=== PATIENT | male | born 1995 | race Caucasian/White ===

== ENCOUNTER 2016-09-09 14:16 | Emergency (ER) | payer OTHER ==
[2016-09-09 14:30] VITALS: TEMP 98; BMI 25.1
[2016-09-09] MEDS ORDERED: SODIUM CHLORIDE 1,000 ML IV STA (16:40)
[2016-09-09] MEDS ORDERED: ALBUTEROL SO4 0.083% IH SOL 2.5 MG/3 ML VIAL.NEB. NEB ONE ×2 (16:42→17:41)
--- NOTE | 2016-09-09 16:45 | PDOC ---
History of Present Illness - General History Source: Patient Exam Limitations: No Limitations - History of Present Illness Initial Comments: 09/09/16 16:59 The patient is a 21 year old male, with a significant past medical history of asthma, who presents to the emergency department complaining of a headache, dizziness, and palpitations since last night. The patient reports he was at [employer], when he began to feel his headache. He reports buying two pills for his headache, from a person he had seen at the club in the past. He reports taking the pills at approximately 23:00. Since taking the pills he reports associated palpitations, diaphoresis, and tiredness. The patient reports difficulty sleeping since taking the pills. Patient states symptoms lasted several hours. The patient denies any associated chest pain or shortness of breath. Today, he reports having an asthma attack, and using albuterol with relief of symptoms. The patient reports his symptoms have worn off, but he presents to the ED due to concerns about what pill he may have taken. The patient denies any fever, chills, or dizziness. The patient denies any nausea, vomiting, diarrhea, constipation, or changes in urination patterns. Allergies: NKDA, Bee-venom Past Surgical History: None reported. Social History: Current everyday smoker(8-10 cigarettes per day). Social ETOH use. Denies drug use. PCP: Dr. Valdez <J Luis Miller - Last Filed: 09/09/16 17:00> - General History Source: Patient, Parent(s) Exam Limitations: No Limitations <Garrett Wolf - Last Filed: 09/09/16 18:31> - General Chief Complaint: Lightheaded Stated Complaint: DIZZINESS Time Seen by Provider: 09/09/16 16:31 Past History <J Luis Miller - Last Filed: 09/09/16 17:00> - Past Medical History Asthma: Yes - Psycho/Social/Smoking Cessation Hx Anxiety: No Suicidal Ideation: No Smoking History: Current every day smoker Have you smoked in the past 12 months: No Number of Cigarettes Smoked Daily: 10 Information on smoking cessation initiated: No Hx Alcohol Use: No Drug/Substance Use Hx: No Substance Use Type: None <Garrett Wolf - Last Filed: 09/09/16 18:31> - Past Medical History Allergies/Adverse Reactions: Allergies Allergy/AdvReac Type Severity Reaction Status Date / Time venom-honey bee Allergy Verified 09/09/16 14:30 [bee venom (honey bee)] Home Medications: Ambulatory Orders Albuterol 2.5/Ipratropium 0.5 [Duoneb -] 1 neb IH Q4H #1 vial.neb. 01/14/16 Albuterol Sulfate Inhaler - [Ventolin HFA Inhaler -] 1 - 2 inh PO QID PRN #1 inhaler 04/13/16 Cephalexin Monohydrate [Keflex -] 500 mg PO BID #20 capsule 05/23/16 Sulfamethoxazole/Trimethoprim [Bactrim Ds -] 1 tab PO BID #14 tablet 05/23/16 Review of Systems - Review of Systems Able to Perform ROS?: Yes Comments:: 09/09/16 16:48 GENERAL/CONSTITUTIONAL: Yes:+Tired. No fever or chills. No weakness. HEAD, EYES, EARS, NOSE AND THROAT: No change in vision. No ear pain or discharge. No sore throat. CARDIOVASCULAR: Yes: +palpitations, +diaphoresis. No chest pain or shortness of breath. RESPIRATORY: Yes: +cough, +wheezing. No hemoptysis. GASTROINTESTINAL: No nausea, vomiting, diarrhea or constipation. GENITOURINARY: No dysuria, frequency, or change in urination. MUSCULOSKELETAL: No joint or muscle swelling or pain. No neck or back pain. SKIN: No rash NEUROLOGIC: Yes: +headache, +dizziness. No vertigo, loss of consciousness, or change in strength/sensation. ENDOCRINE: No increased thirst. No abnormal weight change. HEMATOLOGIC/LYMPHATIC: No anemia, easy bleeding, or history of blood clots. ALLERGIC/IMMUNOLOGIC: No hives or skin allergy. <J Luis Miller - Last Filed: 09/09/16 17:00> *Physical Exam - Vital Signs Last Vital Signs Temp Pulse Resp BP Pulse Ox 98 F 80 18 156/85 98 09/09/16 14:27 09/09/16 14:27 09/09/16 14:27 09/09/16 14:27 09/09/16 14:27 - Physical Exam Comments: 09/09/16 16:48 GENERAL: Awake, alert, and fully oriented, in no acute distress HEAD: No signs of trauma EYES: PERRLA, EOMI, sclera anicteric, conjunctiva clear ENT: Auricles normal inspection, hearing grossly normal, nares patent, oropharynx clear without exudates. Moist mucosa NECK: Normal ROM, supple, no lymphadenopathy, JVD, or masses LUNGS: Breath sounds equal, clear to auscultation bilaterally. No wheezes, and no crackles HEART: Regular rate and rhythm, normal S1 and S2, no murmurs, rubs or gallops ABDOMEN: Soft, nontender, normoactive bowel sounds. No guarding, no rebound. No masses EXTREMITIES: Normal range of motion, no edema. No clubbing or cyanosis. No cords, erythema, or tenderness NEUROLOGICAL: Cranial nerves II through XII grossly intact. Normal speech, normal gait SKIN: Warm, Dry, normal turgor, no rashes or lesions noted. <J Luis Miller - Last Filed: 09/09/16 17:00> - Vital Signs Last Vital Signs Temp Pulse Resp BP Pulse Ox 98 F 80 18 156/85 98 09/09/16 14:27 09/09/16 14:27 09/09/16 14:27 09/09/16 14:27 09/09/16 14:27 <Garrett Wolf - Last Filed: 09/09/16 18:31> Heart Score/ECG Review #1 ECG reviewed & interpreted by me at: 17:30 09/09/16 17:50 NSR 60, no std/raúl, normal intervals, QTC 388 msec. no twi. <Garrett Wolf - Last Filed: 09/09/16 18:31> ED Treatment Course - LABORATORY CBC & Chemistry Diagram: 09/09/16 17:05 09/09/16 17:05 <Garrett Wolf - Last Filed: 09/09/16 18:31> Medical Decision Making - Medical Decision Making 09/09/16 16:41 A portion of this note was written by my scribe, under my supervision. Vital Signs Temp Pulse Resp BP Pulse Ox 98 F 80 18 156/85 98 09/09/16 14:27 09/09/16 14:27 09/09/16 14:27 09/09/16 14:27 09/09/16 14:27 21 year old male with past medical history of asthma presents with palpitations and dizziness. The patient was out yesterday night going to a club in [place]. He ended up took two pills from a "dealer" at approximately 11 pm yesterday night. Since then, has developed dizziness, palpitations, feeling warm, and couldn't sleep. Reported that the symptoms lasted for several hours and pt was having difficulty sleeping. Denies chest pain, SOB. Stated that he started to wheeze and he has been using his albuterol. Patient was concerned for what he had taken and came into ED. Reports feeling better now. At this point, patient is not symptomatic. It is possible that this may have been ecstacy. However, will need to investigate with ECG, drug screen, labs, UA. Though lungs are clear, will give one dose of albuterol. Observe and reassess. 09/09/16 18:31 CBC, BMP 09/09/16 17:05 09/09/16 17:05 CMP Sodium 143 mmol/L (136-145) 09/09/16 17:05 Potassium 4.1 mmol/L (3.5-5.1) 09/09/16 17:05 Chloride 108 mmol/L (98-107) H 09/09/16 17:05 Carbon Dioxide 25 mmol/L (21-32) 09/09/16 17:05 Anion Gap 10 (8-16) 09/09/16 17:05 BUN 17 mg/dL (7-18) D 09/09/16 17:05 Creatinine 0.8 mg/dL (0.7-1.3) 09/09/16 17:05 Creat Clearance w eGFR > 60 (>60) 09/09/16 17:05 Random Glucose 94 mg/dL (74-106) 09/09/16 17:05 Calcium 9.0 mg/dL (8.5-10.1) 09/09/16 17:05 Total Bilirubin 0.3 mg/dL (0.2-1.0) D 09/09/16 17:05 AST 15 U/L (15-37) D 09/09/16 17:05 ALT 32 U/L (12-78) 09/09/16 17:05 Alkaline Phosphatase 74 U/L (45-117) 09/09/16 17:05 Creatine Kinase 132 IU/L (39-308) 09/09/16 17:05 Troponin I < 0.02 ng/ml (0.00-0.05) 09/09/16 17:05 Total Protein 6.8 g/dl (6.4-8.2) 09/09/16 17:05 Albumin 3.9 g/dl (3.4-5.0) 09/09/16 17:05 Urine Test Results Urine Color Yellow 09/09/16 17:20 Urine Appearance Slcloudy 09/09/16 17:20 Urine pH 7.0 (5.0-8.0) 09/09/16 17:20 Ur Specific [place] 1.026 (1.001-1.035) 09/09/16 17:20 Urine Protein Negative (NEGATIVE) 09/09/16 17:20 Urine Glucose (UA) Negative (NEGATIVE) 09/09/16 17:20 Urine Ketones Negative (NEGATIVE) 09/09/16 17:20 Urine Blood Negative (NEGATIVE) 09/09/16 17:20 Urine Nitrite Negative (NEGATIVE) 09/09/16 17:20 Urine Bilirubin Negative (NEGATIVE) 09/09/16 17:20 Ur Leukocyte Esterase Negative (NEGATIVE) 09/09/16 17:20 Urine tox positive for ecstasy and marijunana. ECG unremarkable. Pt and pt's family given results. Drug counselling and cessation advised. Patient is cleared for discharge. I discussed the physical exam findings, ancillary test results and final diagnoses with the patient. I answered all of the patient's questions. The patient was satisfied with the care received and felt comfortable with the discharge plan and treatment plan. The patient will call their primary care physician within 24 hours to arrange follow-up and will return to the Emergency Department with any new, persistant or worsening symptoms. <Garrett Wolf - Last Filed: 09/09/16 18:31> *DC/Admit/Observation/Transfer - Attestations Scribe Attestion: 09/09/16 16:49 Documentation prepared by J Luis Miller, acting as medical attendant for Garrett Wolf MD. <J Luis Miller - Last Filed: 09/09/16 17:00> - Discharge Dispostion Admit: No <Garrett Wolf - Last Filed: 09/09/16 18:31> Diagnosis at time of Disposition: Ecstasy use disorder, mild - Discharge Dispostion Disposition: HOME Condition at time of disposition: Stable - Referrals Referrals: Onel Valdez [Primary Care Provider] - - Patient Instructions Additional Instructions: Please be careful of what you take. Please follow up with your doctor. - Post Discharge Activity Work/School Note: Back to Work
[2016-09-09 17:25] LABS: BASOPHIL 0.6 % (0-2.0); EOSINOPHIL 1.8 % (0-4.5); MCH 29.6 pg (25.7-33.7); MCHC 34.3 g/dl (32.0-35.9); MEAN CELL VOLUME 86.4 fl (80-96); MEAN PLT VOLUME 9.3 fl (7.5-11.1); NEUTROPHILS 67.7 % (42.8-82.8); PLATELET COUNT 206 K/MM3 (134-434); RDW 14.1 % (11.9-15.9); WHITE BLOOD COUNT 10.2 K/mm3 (4.0-10.0)
[2016-09-09 17:31] LABS: URINE APPEARANCE SLCLOUDY; URINE BILIRUBIN NEGATIVE (NEGATIVE); URINE BLOOD NEGATIVE (NEGATIVE); URINE COLOR YELLOW; URINE GLUCOSE (UA) NEGATIVE (NEGATIVE); URINE KETONE NEGATIVE (NEGATIVE); URINE LEUK ESTERASE NEGATIVE (NEGATIVE); URINE NITRITE NEGATIVE (NEGATIVE); URINE PROTEIN NEGATIVE (NEGATIVE); URINE UROBILINOGEN NEGATIVE E.U./dl (0.2-1.0)
[2016-09-09 17:49] LABS: ALBUMIN 3.9 g/dl (3.4-5.0); ANION GAP 10 (8-16); CO2 25 mmol/L (21-32); COCKROFT - GAULT 170.09; CREATININE 0.8 mg/dL (0.7-1.3); GLUCOSE,RANDOM 94 mg/dL (74-106); SGOT/AST 15 U/L (15-37)
[2016-09-09 17:52] LABS: ALCOHOL < 5.0 mg/dl (0-5)
[2016-09-09 17:53] LABS: ALK PHOS 74 U/L (45-117); BILIRUBIN,TOTAL 0.3 mg/dL (0.2-1.0); SGPT/ALT 32 U/L (12-78); TOT PROT 6.8 g/dl (6.4-8.2); TROPONIN I < 0.02 ng/ml (0.00-0.05)
[2016-09-09 17:56] LABS: URINE MARIJUANA THC POSITIVE ng/ml (CUTOFF=50)
[2016-09-09 18:13] LABS: SALICYLATE < 4.0 mg/dl (0.0-30.0)
[2016-09-09 18:51] VITALS: BP 149/75; PULSE 79
--- NOTE | 2016-09-10 14:24 | EKG ---
Test Reason : Blood Pressure : / mmHG Vent. Rate : 060 BPM Atrial Rate : 060 BPM P-R Int : 134 ms QRS Dur : 086 ms QT Int : 388 ms P-R-T Axes : 049 091 041 degrees QTc Int : 388 ms NORMAL SINUS RHYTHM WITH SINUS ARRHYTHMIA RIGHTWARD AXIS BORDERLINE ECG WHEN COMPARED WITH ECG OF 11-OCT-2015 15:21, NO SIGNIFICANT CHANGE WAS FOUND CLINICAL CORRELATION IS RECOMMENDED Confirmed by DIANA WILLIAM, EWA ([id number]) on 09/10/2016 2:24:41 PM Referred By: Confirmed By:EWA ORTIZ MD
== END 2016-09-09 18:51 | disposition home or self-care (01) ==
LOC: JER 14:16
PROC: 3E0F7GC Introduction of Other Therapeutic Substance into Respiratory Tract, Via Natural or Artificial Opening (ICD-10-PCS; principal; 2016-09-09)
PROC: 3E0337Z Introduction of Electrolytic and Water Balance Substance into Peripheral Vein, Percutaneous Approach (ICD-10-PCS; 2016-09-09)
DX: F15.10 Other stimulant abuse, uncomplicated (principal); J45.909 Unspecified asthma, uncomplicated; F17.210 Nicotine dependence, cigarettes, uncomplicated
CPT/HCPCS: 36415; 80053; 80307; 81003; 82550; 84484; 85025; 93005; 93010; 94640; 96360; 99282-25; G0480

== ENCOUNTER 2016-10-25 06:59 | Emergency (ER) | payer OTHER ==
[2016-10-25 07:11] VITALS: TEMP 97.8; BMI 29.1
--- NOTE | 2016-10-25 07:33 | PDOC ---
History of Present Illness - General History Source: Patient Exam Limitations: No Limitations - History of Present Illness Initial Comments: 10/25/16 07:42 The patient is a 21 year old male, with a significant past medical history of asthma, who presents to the emergency department with abdominal pain, nausea, and vomiting since this morning. The patient reports yesterday feeling baseline , and notes waking up in the morning with acute onset of abdominal pain and vomiting. He reports having two episodes of vomiting today, describing his vomit as watery. He describes his abdominal pain as diffuse over most his abdomen, ranking his pain a 10/10 in pain intensity. He reports the day before eating various fast foods, including [employer] and [employer] He denies any recent fevers, chills, headache or dizziness. He denies any recent diarrhea or constipation. He denies any recent chest pain or shortness of breath. He denies any recent dysuria, frequency, urgency or hematuria. Allergies: NKDA Past surgical history: None reported. Social History: Nonsmoker. Denies EtOH use and recreational drug use. Primary Care Physician: <Abelardo Damon - Last Filed: 10/25/16 11:23> <Cisco Morales - Last Filed: 10/25/16 12:11> - General Chief Complaint: Pain Stated Complaint: ABD PAIN Time Seen by Provider: 10/25/16 07:24 Past History <Abelardo Damon - Last Filed: 10/25/16 11:23> - Past Medical History Asthma: Yes - Psycho/Social/Smoking Cessation Hx Anxiety: No Suicidal Ideation: No Smoking History: Current every day smoker Have you smoked in the past 12 months: No Number of Cigarettes Smoked Daily: 7 Information on smoking cessation initiated: Yes 'Breaking Loose' booklet given: 10/25/16 Hx Alcohol Use: Yes (social) Drug/Substance Use Hx: No Substance Use Type: None <Cisco Morales - Last Filed: 10/25/16 12:11> - Past Medical History Allergies/Adverse Reactions: Allergies Allergy/AdvReac Type Severity Reaction Status Date / Time No Known Drug Allergies Allergy Verified 10/25/16 07:11 venom-honey bee Allergy Verified 10/25/16 07:11 [bee venom (honey bee)] Home Medications: Ambulatory Orders Ondansetron [Zofran *Odt*] 8 mg SL TID PRN #20 od.tablet 10/25/16 Review of Systems - Review of Systems Constitutional: Yes: Chills. No: Fever Respiratory: No: Cough, Shortness of Breath Cardiac (ROS): No: Chest Pain ABD/GI: Yes: Nausea, Vomiting. No: Constipated, Diarrhea : No: Dysuria, Frequency Integumentary: No: Rash Neurological: No: Headache All Other Systems: Reviewed and Negative <Cisco Morales - Last Filed: 10/25/16 12:11> *Physical Exam - Vital Signs Last Vital Signs Temp Pulse Resp BP Pulse Ox 97.8 F 61 20 112/64 100 10/25/16 07:08 10/25/16 07:08 10/25/16 07:08 10/25/16 07:08 10/25/16 07:08 - Physical Exam Comments: 10/25/16 07:42 GENERAL: The patient is awake, alert, and fully oriented, in no acute distress. HEAD: Normal with no signs of trauma. EYES: Pupils equal, round and reactive to light, extraocular movements intact, sclera anicteric, conjunctiva clear with no pallor. ENT: Ears normal, nares patent, oropharynx clear without exudates. Dry mucous membranes. NECK: Normal range of motion, supple without lymphadenopathy, JVD, or masses. LUNGS: Breath sounds equal, clear to auscultation bilaterally. No wheeze/ crackles. HEART: Regular rate and rhythm, normal S1 and S2 without murmur or rub. ABDOMEN: Right sided abdominal pain worse at the RLQ with guarding and rebound. Soft/nondistended. BS wnl. No palpable masses. No hepatosplenomegaly. EXTREMITIES: Normal range of motion, no edema. No clubbing or cyanosis. No cords , erythema, or tenderness. NEUROLOGICAL: Cranial nerves II through XII grossly intact. Normal speech, normal gait. PSYCH: Normal mood, normal affect. SKIN: Warm, Dry, normal turgor, no rashes or lesions noted. <Abelardo Damon - Last Filed: 10/25/16 11:23> - Vital Signs Last Vital Signs Temp Pulse Resp BP Pulse Ox 97.8 F 61 20 112/64 100 10/25/16 07:08 10/25/16 07:08 10/25/16 07:08 10/25/16 07:08 10/25/16 07:08 <Cisco Morales - Last Filed: 10/25/16 12:11> Heart Score/ECG Review #1 ECG reviewed & interpreted by me at: 07:48 General ECG Interpretation: Sinus Rhythm (inverted P wave inferior leads), Normal Rate (61), Normal Intervals, No acute ischemic changes (early repol, no ischemia) #2 ECG reviewed & interpreted by me at: 07:54 (repeated to confirm no lead placement issues) General ECG Interpretation: Sinus Rhythm, Normal Rate (57), Normal Intervals, No acute ischemic changes <Cisco Morales - Last Filed: 10/25/16 12:11> ED Treatment Course - LABORATORY CBC & Chemistry Diagram: 10/25/16 08:35 10/25/16 08:35 - RADIOLOGY Radiograph Interpretation: 10/25/16 11:23 ABDOMEN & PELVIS CT WITH CONTR impressions reported by : Fecal retention, otherwise normal CT scan of the abdomen and pelvis with no evidence of acute pathology. <Abelardo Damon - Last Filed: 10/25/16 11:23> - LABORATORY CBC & Chemistry Diagram: 10/25/16 08:35 10/25/16 08:35 <Cisco Morales - Last Filed: 10/25/16 12:11> Medical Decision Making - Medical Decision Making 10/25/16 07:58 A portion of this note was documented by scribe services under my direction. I have reviewed the details of the note, within reason, and agree with the documentation with the following case summary and management plan written by me. Healthy 21-year-old male with history of mild intermittent asthma presents with nausea/vomiting/abdominal pain since this morning. Patient did eat various fast food yesterday, went to bed feeling fine and awoke around 3:30 AM with generalized periumbilical abdominal pain and 2 episodes of nonbloody nonbilious emesis. Due to abdominal pain is persisting, worsening in severity, and remains periumbilical. Normal bowel movement yesterday, no recent travel or known sick contacts or recent antibiotics. No surgical history. Afebrile. Dry mucosa. Soft/nondistended, tender in the right abdomen greatest at McBurney's point with there is guarding and rebound No CVA tenderness 21-year-old male with nausea/vomiting/abdominal pain since this morning, seems most concerning for early appendicitis. could also be gastroenteritis, less likely pancreatitis or biliary. labs, ua ivf, pain control, anti-emetic CTAP reassess 10/25/16 09:52 Slight leukocytosis of 13.4, chemistries are otherwise within normal limits including lipase. Urinalysis clear. Awaiting CAT scan, will dispo accordingly. 10/25/16 12:07 CT without acute pathology, pain has resolved, tenderness has resolved. Tolerating by mouth, agrees with discharge plan, understands return criteria. <Cisco Morales - Last Filed: 10/25/16 12:11> *DC/Admit/Observation/Transfer - Attestations Scribe Attestion: 10/25/16 07:42 Documentation prepared by Abelardo Damon, acting as medical insurance coding specialist for Cisco Morales MD. <Abelardo Damon - Last Filed: 10/25/16 11:23> <Cisco Morales - Last Filed: 10/25/16 12:11> Diagnosis at time of Disposition: Abdominal pain Qualifiers: Abdominal location: right lower quadrant Qualified Code(s): R10.31 - Right lower quadrant pain Gastritis Qualifiers: Gastritis type: unspecified gastritis Chronicity: acute Gastritis bleeding: without bleeding Qualified Code(s): K29.00 - Acute gastritis without bleeding - Discharge Dispostion Disposition: HOME Condition at time of disposition: Improved - Prescriptions Prescriptions: Ondansetron [Zofran *Odt*] 8 mg SL TID PRN #20 od.tablet PRN Reason: Nausea - Referrals Referrals: Onel Valdez [Primary Care Provider] - - Patient Instructions Printed Discharge Instructions: DI for Gastritis Additional Instructions: Activity as tolerated. Stay hydrated. Advance diet as tolerated, avoiding dairy , spicy or fatty foods, caffeine and alcohol. Zofran as prescribed as needed for nausea. Take Pepcid 20 mg twice daily for one week if upper abdominal burning persists. You should follow up with your primary doctor as soon as possible regarding today's emergency department visit. Return to the emergency department for any new or concerning symptoms, particularly persistent pain, bloody vomit or stool, dehydration, fevers or chills. - Post Discharge Activity Work/School Note: Back to Work
[2016-10-25] MEDS ORDERED: ONDANSETRON 4 MG/2 ML VIAL IVPB ONE (07:41)
[2016-10-25] MEDS ORDERED: SODIUM CHLORIDE 1,000 ML IV ONE (07:41)
[2016-10-25] MEDS ORDERED: morphine CARPU-JECT 4 MG/1 ML DISP.SYRIN IVPUSH ONE (07:41)
[2016-10-25] MEDS ORDERED: ONDANSETRON 4 MG/2 ML VIAL ONE (08:17)
[2016-10-25] MEDS ORDERED: morphine CARPU-JECT 4 MG/1 ML DISP.SYRIN ONE (08:17)
[2016-10-25 08:48] LABS: URINE APPEARANCE CLEAR; URINE BILIRUBIN NEGATIVE (NEGATIVE); URINE COLOR LTYELLOW; URINE GLUCOSE (UA) NEGATIVE (NEGATIVE); URINE KETONE NEGATIVE (NEGATIVE); URINE LEUK ESTERASE NEGATIVE (NEGATIVE); URINE NITRITE NEGATIVE (NEGATIVE); URINE PROTEIN NEGATIVE (NEGATIVE); URINE UROBILINOGEN NEGATIVE E.U./dl (0.2-1.0)
[2016-10-25 08:52] LABS: URINE BLOOD 1+ (NEGATIVE)
[2016-10-25 08:54] LABS: BASOPHIL 0.3 % (0-2.0); EOSINOPHIL 1.6 % (0-4.5); MCH 29.2 pg (25.7-33.7); MCHC 33.5 g/dl (32.0-35.9); MEAN CELL VOLUME 87.2 fl (80-96); NEUTROPHILS 82.4 % (42.8-82.8); PLATELET COUNT 157 K/MM3 (134-434); RDW 13.6 % (11.9-15.9); WHITE BLOOD COUNT 13.4 K/mm3 (4.0-10.0)
[2016-10-25 09:06] LABS: ALBUMIN 3.9 g/dl (3.4-5.0); ALK PHOS 69 U/L (45-117); ANION GAP 11 (8-16); BILIRUBIN,TOTAL 0.6 mg/dL (0.2-1.0); CALCIUM 9.2 mg/dL (8.5-10.1); CO2 28 mmol/L (21-32); CREATININE 0.8 mg/dL (0.7-1.3); GLUCOSE,RANDOM 90 mg/dL (74-106); SGOT/AST 10 U/L (15-37); SGPT/ALT 33 U/L (12-78); TOT PROT 6.9 g/dl (6.4-8.2)
[2016-10-25 09:22] LABS: URINE MUCUS RARE; URINE RBC <1 /hpf (0-3); URINE WBC 1 /hpf (3-5)
[2016-10-25 12:47] VITALS: BP 117/56; PULSE 76
--- NOTE | 2016-10-26 16:32 | EKG ---
Test Reason : Blood Pressure : / mmHG Vent. Rate : 057 BPM Atrial Rate : 057 BPM P-R Int : 126 ms QRS Dur : 084 ms QT Int : 380 ms P-R-T Axes : -43 086 030 degrees QTc Int : 369 ms SINUS BRADYCARDIA Confirmed by RENETTA COON MD ([id number]) on 10/26/2016 4:32:13 PM Referred By: Confirmed By:RENETTA COON MD
--- NOTE | 2016-10-26 16:32 | EKG ---
Test Reason : Blood Pressure : / mmHG Vent. Rate : 061 BPM Atrial Rate : 061 BPM P-R Int : 126 ms QRS Dur : 084 ms QT Int : 378 ms P-R-T Axes : -60 087 033 degrees QTc Int : 380 ms UNUSUAL P AXIS, POSSIBLE ECTOPIC ATRIAL RHYTHM ABNORMAL ECG WHEN COMPARED WITH ECG OF 09-SEP-2016 17:28, ECTOPIC ATRIAL RHYTHM HAS REPLACED SINUS RHYTHM Confirmed by RENETTA COON MD ([id number]) on 10/26/2016 4:32:25 PM Referred By: Confirmed By:RENETTA COON MD
== END 2016-10-25 12:47 | disposition home or self-care (01) ==
LOC: JER 06:59
PROC: 3E033NZ Introduction of Analgesics, Hypnotics, Sedatives into Peripheral Vein, Percutaneous Approach (ICD-10-PCS; principal; 2016-10-25)
PROC: 3E033GC Introduction of Other Therapeutic Substance into Peripheral Vein, Percutaneous Approach (ICD-10-PCS; 2016-10-25)
PROC: 3E0337Z Introduction of Electrolytic and Water Balance Substance into Peripheral Vein, Percutaneous Approach (ICD-10-PCS; 2016-10-25)
DX: K29.00 Acute gastritis without bleeding (principal); R10.31 Right lower quadrant pain; J45.909 Unspecified asthma, uncomplicated
CPT/HCPCS: 36415; 74177-TC; 80053; 81003; 81015; 83690; 85025; 93005; 93010; 96361; 96374; 96375; 99283-25; Q9967

== ENCOUNTER 2017-03-03 12:40 | Inpatient (IN) | payer OTHER ==
--- NOTE | 2017-03-03 13:00 | PDOC ---
History of Present Illness - General Chief Complaint: Psychiatric Stated Complaint: EVALUATION Time Seen by Provider: 03/03/17 12:58 - History of Present Illness Initial Comments: 03/03/17 12:58 The patient is a year old female, with a significant past medical history of, who presents to the emergency department with The patient denies chest pain, shortness of breath, headache and dizziness. Denies fever, chills, nausea, vomit, diarrhea and constipation. Denies dysuria, frequency, urgency and hematuria. Allergies: Past surgical history: Social history: PMD - Past History - Past Medical History Allergies/Adverse Reactions: Allergies Allergy/AdvReac Type Severity Reaction Status Date / Time No Known Drug Allergies Allergy Verified 03/03/17 12:46 venom-honey bee Allergy Verified 03/03/17 12:46 [bee venom (honey bee)] Home Medications: Ambulatory Orders Ondansetron [Zofran *Odt*] 8 mg SL TID PRN #20 od.tablet 10/25/16 Asthma: Yes - Suicide/Smoking/Psychosocial Hx Smoking History: Never smoked Have you smoked in the past 12 months: No Number of Cigarettes Smoked Daily: 7 Information on smoking cessation initiated: No 'Breaking Loose' booklet given: 10/25/16 Hx Alcohol Use: No Drug/Substance Use Hx: No Substance Use Type: None Review of Systems - Review of Systems Comments:: 03/03/17 12:58 GENERAL/CONSTITUTIONAL: No fever or chills. No weakness. HEAD, EYES, EARS, NOSE AND THROAT: No change in vision. No ear pain or discharge. No sore throat. CARDIOVASCULAR: No chest pain or shortness of breath RESPIRATORY: No cough, wheezing, or hemoptysis. GASTROINTESTINAL: No nausea, vomiting, diarrhea or constipation. GENITOURINARY: No dysuria, frequency, or change in urination. MUSCULOSKELETAL: No joint or muscle swelling or pain. No neck or back pain. SKIN: No rash NEUROLOGIC: No headache, vertigo, loss of consciousness, or change in strength/ sensation. ENDOCRINE: No increased thirst. No abnormal weight change HEMATOLOGIC/LYMPHATIC: No anemia, easy bleeding, or history of blood clots. ALLERGIC/IMMUNOLOGIC: No hives or skin allergy. *Physical Exam - Vital Signs Last Vital Signs Temp Pulse Resp BP Pulse Ox 97.9 F 65 18 119/69 100 03/03/17 12:45 10/07/17 12:45 03/03/17 12:45 03/03/17 12:45 03/03/17 12:45 - Physical Exam Comments: 03/03/17 12:58 GENERAL: Awake, alert, and fully oriented, in no acute distress HEAD: No signs of trauma, normocephalic, atraumatic EYES: PERRLA, EOMI, sclera anicteric, conjunctiva clear ENT: Auricles normal inspection, hearing grossly normal, nares patent, oropharynx clear without exudates. Moist mucosa NECK: Normal ROM, supple, no lymphadenopathy, JVD, or masses LUNGS: No distress, speaks full sentences, clear to auscultation bilaterally HEART: Regular rate and rhythm, normal S1 and S2, no murmurs, rubs or gallops, peripheral pulses normal and equal bilaterally. ABDOMEN: Soft, nontender, normoactive bowel sounds. No guarding, no rebound. No masses EXTREMITIES: Normal inspection, Normal range of motion, no edema. No clubbing or cyanosis. NEUROLOGICAL: Cranial nerves II through XII grossly intact. Normal speech, normal gait, no focal sensorimotor deficits SKIN: Warm, Dry, normal turgor, no rashes or lesions noted.
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
[2017-03-03 14:06] LABS: URINE MARIJUANA THC NEGATIVE ng/ml (CUTOFF=50)
[2017-03-03 14:44] LABS: BASOPHIL 0.6 % (0-2.0); EOSINOPHIL 3.7 % (0-4.5); MCH 29.3 pg (25.7-33.7); MCHC 33.7 g/dl (32.0-35.9); MEAN CELL VOLUME 87.1 fl (80-96); MEAN PLT VOLUME 9.1 fl (7.5-11.1); NEUTROPHILS 64.8 % (42.8-82.8); PLATELET COUNT 190 K/MM3 (134-434); RDW 13.6 % (11.9-15.9); WHITE BLOOD COUNT 7.8 K/mm3 (4.0-10.0)
[2017-03-03 14:46] LABS: URINE APPEARANCE SLCLOUDY; URINE BILIRUBIN NEGATIVE (NEGATIVE); URINE BLOOD NEGATIVE (NEGATIVE); URINE COLOR YELLOW; URINE GLUCOSE (UA) NEGATIVE (NEGATIVE); URINE KETONE NEGATIVE (NEGATIVE); URINE NITRITE NEGATIVE (NEGATIVE); URINE PROTEIN NEGATIVE (NEGATIVE); URINE UROBILINOGEN NEGATIVE mg/dL (0.2-1.0)
[2017-03-03 15:06] LABS: ALBUMIN 3.8 g/dl (3.4-5.0); ANION GAP 6 (8-16); BILIRUBIN,TOTAL 0.6 mg/dL (0.2-1.0); CALCIUM 9.2 mg/dL (8.5-10.1); CO2 30 mmol/L (21-32); CREATININE 0.8 mg/dL (0.7-1.3); GLUCOSE,RANDOM 89 mg/dL (74-106); SGOT/AST 9 U/L (15-37); SGPT/ALT 26 U/L (12-78); TOT PROT 6.8 g/dl (6.4-8.2)
[2017-03-03 15:15] LABS: ALK PHOS 71 U/L (45-117); THYROID STIMULATING HORMONE 1.32 uIU/ml (0.358-3.74)
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
[2017-03-03 18:18] LABS: URINE LEUK ESTERASE Negative (NEGATIVE)
--- NOTE | 2017-03-03 19:39 | PDOC ---
*Physical Exam - Vital Signs Last Vital Signs Temp Pulse Resp BP Pulse Ox 97.9 F 65 18 119/69 100 03/03/17 12:45 03/03/17 12:45 03/03/17 12:45 03/03/17 12:45 03/03/17 12:45 ED Treatment Course - LABORATORY CBC & Chemistry Diagram: 03/03/17 14:36 03/03/17 14:36 - ADDITIONAL ORDERS Additional order review: Laboratory Results 03/03/17 03/03/17 03/03/17 14:36 14:36 14:36 Sodium 140 Potassium 4.4 Chloride 104 Carbon Dioxide 30 Anion Gap 6 L BUN 21 H D Creatinine 0.8 Creat Clearance w eGFR > 60 Random Glucose 89 Calcium 9.2 Total Bilirubin 0.6 AST 9 L ALT 26 D Alkaline Phosphatase 71 Total Protein 6.8 Albumin 3.8 TSH Cancelled 1.32 Urine Color Urine Appearance Urine pH Ur Specific [place] Urine Protein Urine Glucose (UA) Urine Ketones Urine Blood Urine Nitrite Urine Bilirubin Urine Urobilinogen Ur Leukocyte Esterase Opiates Screen Methadone Screen Barbiturate Screen Phencyclidine Screen Ur Amphetamines Screen MDMA (Ecstasy) Screen Benzodiazepines Screen Cocaine Screen U Marijuana (THC) Screen Alcohol, Quantitative < 5.0 03/03/17 03/03/17 13:48 13:46 Sodium Potassium Chloride Carbon Dioxide Anion Gap BUN Creatinine Creat Clearance w eGFR Random Glucose Calcium Total Bilirubin AST ALT Alkaline Phosphatase Total Protein Albumin TSH Urine Color Yellow Urine Appearance Slcloudy Urine pH 6.0 Ur Specific [place] 1.025 Urine Protein Negative Urine Glucose (UA) Negative Urine Ketones Negative Urine Blood Negative Urine Nitrite Negative Urine Bilirubin Negative Urine Urobilinogen Negative Ur Leukocyte Esterase Negative Opiates Screen Negative Methadone Screen Negative Barbiturate Screen Negative Phencyclidine Screen Negative Ur Amphetamines Screen Negative MDMA (Ecstasy) Screen Negative Benzodiazepines Screen Negative Cocaine Screen Negative U Marijuana (THC) Screen Negative Alcohol, Quantitative 03/03/17 14:36 RBC 5.13 MCV 87.1 MCHC 33.7 RDW 13.6 MPV 9.1 Neutrophils % 64.8 D Lymphocytes % 21.5 D Monocytes % 9.4 Eosinophils % 3.7 D Basophils % 0.6 Medical Decision Making - Medical Decision Making 21 year old healthy male being transferred to [facility] being transferred for homicidal ideation. All labs WNL. Currently stable and on 1:1. 03/03/17 19:37 Patient still pending transfer to [facility] after multiple calls to transfer and conversations with the psych resident. The main limiting factor is approval by the psych attending. 03/04/17 07:20 *DC/Admit/Observation/Transfer Diagnosis at time of Disposition: Psychiatric disturbance
--- NOTE | 2017-03-04 16:14 | EKG ---
Test Reason : Blood Pressure : / mmHG Vent. Rate : 064 BPM Atrial Rate : 064 BPM P-R Int : 132 ms QRS Dur : 084 ms QT Int : 374 ms P-R-T Axes : 045 094 027 degrees QTc Int : 385 ms NORMAL SINUS RHYTHM RIGHTWARD AXIS BORDERLINE ECG WHEN COMPARED WITH ECG OF 2016 SINUS RHYTHM HAS REPLACED ECTOPIC ATRIAL RHYTHM ( INTERMITTENT). REPEAT IF INDICATED Confirmed by NATALYA BLACK MD ([id number]) on 03/04/2017 4:13:49 PM Referred By: Confirmed By:NATALYA BLACK MD
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
--- NOTE | 2017-03-04 18:54 | HP ---
CHIEF COMPLAINT: "I drank and said some things" PCP: Onel Valdez HISTORY OF PRESENT ILLNESS: 21 y/o M w/PMH of behavioral issues presents to the ER after threatening to hurt his mother. Pt brought in by mother and aunt. Pt states he was partying, drank alcohol, had weed, denies any other substance use, came home and got into an argument with his mother. He states he feels well right now and he usually says these type of things as a joke but does not mean what he says. He states he recently spent 2800 dollars on a cruise for him and his friends and states sometimes he just wants to impress his friends. He denies any audio or visual hallucinations. He denies any suicidal ideations. He states he was placed in a intermediate at age 14 and signed out at age of 19. He denies any CP, SOB, N/V/F/ C. Pt states he is agreeable to taking the zyprexa the psychiatrist recommended. PAST MEDICAL HISTORY: no medical history but has behavorial issues in the past. Social History: Alcohol: drinks at parties Drugs: marijuana Family History: n-c Allergies venom-honey bee [bee venom (honey bee)] Allergy (Verified 03/03/17 12:46) seafood Allergy (Uncoded 03/04/17 12:41) HOME MEDICATIONS: Home Medications Medication Instructions Recorded NK [No Known Home Medication] 03/03/17 REVIEW OF SYSTEMS CONSTITUTIONAL: Absent: fever, chills CARDIOVASCULAR: Absent: chest pain RESPIRATORY: Absent: shortness of breath GASTROINTESTINAL: Absent: abdominal pain, nausea, vomiting PSYCHIATRIC: Absent: currently denies any suicidal or homicidal ideations. Denies audio/ visual hallucinations. PHYSICAL EXAMINATION Vital Signs - 24 hr 03/04/17 17:26 Temperature 98.2 F Pulse Rate [ 83 Apical] Respiratory 18 Rate Blood Pressure 120/68 [Right Arm] O2 Sat by Pulse 98 Oximetry (%) GENERAL: Awake, alert, and fully oriented, in no acute distress. HEAD: Normal with no signs of trauma. EYES: extraocular movements intact EARS, NOSE, THROAT: Ears normal, nares patent NECK: Normal range of motion LUNGS: Breath sounds equal, clear to auscultation bilaterally HEART: Regular rate and rhythm, normal S1 and S2 ABDOMEN: Soft, nontender, not distended, normoactive bowel sounds LOWER EXTREMITIES:warm, well-perfused. No calf tenderness. No peripheral edema. NEUROLOGICAL: Normal speech. Gait not observed. PSYCHIATRIC: Cooperative. Good eye contact. Appropriate mood and affect. SKIN: Warm, dry, no rashes, no track gunn. CBCD WBC 7.8 K/mm3 (4.0-10.0) D 03/03/17 14:36 RBC 5.13 M/mm3 (4.00-5.60) 03/03/17 14:36 Hgb 15.1 GM/dL (11.7-16.9) 03/03/17 14:36 Hct 44.7 % (35.4-49) 03/03/17 14:36 MCV 87.1 fl (80-96) 03/03/17 14:36 MCHC 33.7 g/dl (32.0-35.9) 03/03/17 14:36 RDW 13.6 % (11.9-15.9) 03/03/17 14:36 Plt Count 190 K/MM3 (134-434) D 03/03/17 14:36 MPV 9.1 fl (7.5-11.1) 03/03/17 14:36 CMP Sodium 140 mmol/L (136-145) 03/03/17 14:36 Potassium 4.4 mmol/L (3.5-5.1) 03/03/17 14:36 Chloride 104 mmol/L (98-107) 03/03/17 14:36 Carbon Dioxide 30 mmol/L (21-32) 03/03/17 14:36 Anion Gap 6 (8-16) L 03/03/17 14:36 BUN 21 mg/dL (7-18) H D 03/03/17 14:36 Creatinine 0.8 mg/dL (0.7-1.3) 03/03/17 14:36 Creat Clearance w eGFR > 60 (>60) 03/03/17 14:36 Random Glucose 89 mg/dL (74-106) 03/03/17 14:36 Calcium 9.2 mg/dL (8.5-10.1) 03/03/17 14:36 Total Bilirubin 0.6 mg/dL (0.2-1.0) 03/03/17 14:36 AST 9 U/L (15-37) L 03/03/17 14:36 ALT 26 U/L (12-78) D 03/03/17 14:36 Alkaline Phosphatase 71 U/L (45-117) 03/03/17 14:36 Total Protein 6.8 g/dl (6.4-8.2) 03/03/17 14:36 Albumin 3.8 g/dl (3.4-5.0) 03/03/17 14:36 Urine Test Results Urine Color Yellow 03/03/17 13:46 Urine Appearance Slcloudy 03/03/17 13:46 Urine pH 6.0 (5.0-8.0) 03/03/17 13:46 Ur Specific [place] 1.025 (1.005-1.025) 03/03/17 13:46 Urine Protein Negative (NEGATIVE) 03/03/17 13:46 Urine Glucose (UA) Negative (NEGATIVE) 03/03/17 13:46 Urine Ketones Negative (NEGATIVE) 03/03/17 13:46 Urine Blood Negative (NEGATIVE) 03/03/17 13:46 Urine Nitrite Negative (NEGATIVE) 03/03/17 13:46 Urine Bilirubin Negative (NEGATIVE) 03/03/17 13:46 Ur Leukocyte Esterase Negative (NEGATIVE) 03/03/17 13:46 Laboratory Tests 03/03/17 14:36 TSH 1.32 Laboratory Tests 03/03/17 03/03/17 13:48 14:36 Opiates Screen Negative Methadone Screen Negative Barbiturate Screen Negative Phencyclidine Screen Negative Ur Amphetamines Screen Negative MDMA (Ecstasy) Screen Negative Benzodiazepines Screen Negative Cocaine Screen Negative U Marijuana (THC) Screen Negative Alcohol, Quantitative < 5.0 Active Medications Olanzapine (Zyprexa -) 7.5 mg PO HS [facility] ASSESSMENT/PLAN: 21 y/o M w/PMH of behavioral issues presents to the ER after threatening to hurt his mother. Pt accepted to [facility] for inpatient psych. -Homicidal Ideations -Pt agreeable to taking zyprexa (as per psych recommendation), will order -UTox and Alcohol level negative -Pt agreeable to going to [facility] for psych -1:1 observation -DVT ppx -ambulation -FEN -no fluids needed -electrolytes wnl -Regular diet, no metal/silverware -Dispo: -Monitor w/1:1 observation Visit type - Emergency Visit Emergency Visit: Yes ED Registration Date: 03/04/17 Care time: The patient presented to the Emergency Department on the above date and was hospitalized for further evaluation of their emergent condition. - New Patient This patient is new to me today: Yes Date on this admission: 03/04/17 - Critical Care Critical Care patient: No
[2017-03-04 19:10] VITALS: BMI 26.9
[2017-03-04] MEDS ORDERED: OLANZapine 7.5 MG TABLET PO SCH (22:00)
[2017-03-04 22:22] VITALS: BP 116/84; PULSE 82; TEMP 97.7
[2017-03-04] MEDS ORDERED: OLANZapine 10 MG TABLET ONE (22:26)
--- NOTE | 2017-03-05 00:13 | PDOC ---
*Physical Exam - Vital Signs Last Vital Signs Temp Pulse Resp BP Pulse Ox 97.7 F 82 16 116/84 98 03/04/17 22:38 03/04/17 22:38 03/04/17 22:38 03/04/17 22:38 03/04/17 21:30 ED Treatment Course - LABORATORY CBC & Chemistry Diagram: 03/03/17 14:36 03/03/17 14:36 - ADDITIONAL ORDERS Additional order review: 03/03/17 14:36 RBC 5.13 MCV 87.1 MCHC 33.7 RDW 13.6 MPV 9.1 Neutrophils % 64.8 D Lymphocytes % 21.5 D Monocytes % 9.4 Eosinophils % 3.7 D Basophils % 0.6 - RADIOLOGY Radiology Studies Ordered: Category Date Time Status CXRPORT [CHEST X-RAY PORTABLE*] [RAD] Stat Radiology 03/03/17 19:39 Completed Medical Decision Making - Medical Decision Making [facility] called and approved the patient with a physical bed available. Spoke to Dr. Torres at 24:10 and they are Ok with sending the patient to [facility]. 03/05/17 00:09 *DC/Admit/Observation/Transfer Diagnosis at time of Disposition: Psychiatric disturbance - Discharge Dispostion Disposition: TRANSFER ACUTE CARE/OTHER HOSP Condition at time of disposition: Stable
--- NOTE | 2017-03-05 12:42 | EKG ---
Test Reason : Blood Pressure : / mmHG Vent. Rate : 075 BPM Atrial Rate : 075 BPM P-R Int : 126 ms QRS Dur : 086 ms QT Int : 356 ms P-R-T Axes : 054 097 027 degrees QTc Int : 397 ms NORMAL SINUS RHYTHM WHEN COMPARED WITH ECG OF 03-MAR-2017 19:57, NO SIGNIFICANT CHANGE WAS FOUND Confirmed by PATTI GARCIA MD ([id number]) on 03/05/2017 12:42:27 PM Referred By: Confirmed By:PATTI GARCIA MD
--- NOTE | 2017-03-05 13:29 | DS ---
Physical Exam: SUBJECTIVE: Patient seen and examined at bedside. he is stable to be transferred to the [facility]. OBJECTIVE: Vital Signs Period Temp Pulse Resp BP Sys/Wheeler Pulse Ox Last 24 Hr 97.7 F-98.2 F 82-83 16-18 116-120/68-84 98-98 PHYSICAL EXAM GENERAL: The patient is awake, alert, and fully oriented, in no acute distress. HEAD: Normal with no signs of trauma. EYES: PERRL, extraocular movements intact, sclera anicteric, conjunctiva clear. ENT: Ears normal, nares patent, oropharynx clear without exudates, moist mucous membranes. NECK: Trachea midline, full range of motion, supple. LUNGS: Breath sounds equal, clear to auscultation bilaterally, no wheezes, no crackles, no accessory muscle use. HEART: Regular rate and rhythm, S1, S2 without murmur, rub or gallop. ABDOMEN: Soft, nontender, nondistended, normoactive bowel sounds, no guarding, no rebound, no hepatosplenomegaly, no masses. EXTREMITIES: 2+ pulses, warm, well-perfused, no edema. NEUROLOGICAL: Cranial nerves II through XII grossly intact. Normal speech, gait not observed. PSYCH: Normal mood, normal affect. SKIN: Warm, dry, normal turgor, no rashes or lesions noted. LABS HOSPITAL COURSE: Date of Admission:03/04/17 Date of Discharge: 03/05/17 21 y/o M w/PMH of behavioral issues presents to the ER after threatening to hurt his mother. Pt brought in by mother and aunt. Pt states he was partying, drank alcohol, had weed, denies any other substance use, came home and got into an argument with his mother. He states he feels well right now and he usually says these type of things as a joke but does not mean what he says. He states he recently spent 2800 dollars on a cruise for him and his friends and states sometimes he just wants to impress his friends. He denies any audio or visual hallucinations. He denies any suicidal ideations. He states he was placed in a skilled nursing at age 14 and signed out at age of 19. He denies any CP, SOB, N/V/F/ C. Pt states he is agreeable to taking the zyprexa the psychiatrist recommended. 21 y/o M w/PMH of behavioral issues presents to the ER after threatening to hurt his mother. Pt accepted to [facility] for inpatient psych due Homicidal Ideation, Pt agreeable to taking zyprexa (as per psych recommendation), UTox and Alcohol level negative,Pt agreeable to going to [facility] for psych with 1:1 observation Patient was transferred to [facility]. Minutes to complete discharge: 30 Discharge Summary Reason For Visit: HOMICIDAL IDEATION Condition: Stable - Instructions Disposition: TRANSFER ACUTE CARE/OTHER HOSP - Home Medications Comprehensive Discharge Medication List: Ambulatory Orders NK [No Known Home Medication] 03/03/17 This patient is new to me today: Yes Date on this admission: 03/05/17 Emergency Visit: Yes ED Registration Date: 03/04/17 Care time: The patient presented to the Emergency Department on the above date and was hospitalized for further evaluation of their emergent condition. Critical Care patient: No - Discharge Referral Referred to [facility] Med P.C.: No
== END 2017-03-05 00:21 | disposition short-term general hospital (02) | DRG 751 ==
LOC: JER 12:40 → JERBED 03-04 17:15
PROVIDERS: ADMIT Internal Medicine; ATTEND Internal Medicine
DX: F28 Other psychotic disorder not due to a substance or known physiological condition (principal); R45.850 Homicidal ideations; F10.10 Alcohol abuse, uncomplicated; F17.210 Nicotine dependence, cigarettes, uncomplicated; J45.909 Unspecified asthma, uncomplicated; F90.8 Attention-deficit hyperactivity disorder, other type; F98.8 Other specified behavioral and emotional disorders with onset usually occurring in childhood and adolescence; F06.8 Other specified mental disorders due to known physiological condition
CPT/HCPCS: 36415; 71010-TC; 80053; 80307; 81003; 84443; 85025; 93005; 93010; 99285-25